=== PATIENT | male | born 1955 | race Caucasian/White ===

== ENCOUNTER 2016-08-05 14:16 | Inpatient (IN) | payer OTHER ==
[2016-08-05] VITALS (9 sets, daily range): BP systolic 116–156; BP diastolic 68–87; PULSE 83–103; RESP 15; TEMP 97.2–98.4; O2SAT 99–100
[2016-08-05] MEDS ORDERED: INSULIN HUMAN REGULAR 1,000 UNITS/10 ML VIAL IV PUSH SCH (15:45)
[2016-08-05] MEDS ORDERED: DOPamine INJ PREMIX 500 ML IV SCH (15:45)
[2016-08-05] MEDS: 1/2 NS + KCL 20 MEQ INJ 1,000 ML IV SCH (15:57)
[2016-08-05] MEDS ORDERED: DEXTROSE 50% IN WATER 50 ML VIAL(D50) IV SCH (16:00)
[2016-08-05] MEDS ORDERED: LEVOTHYROXINE SODIUM 100 MCG VIAL IV PUSH ONE (16:00)
--- NOTE | 2016-08-05 16:27 | RADRPT ---
EXAM DATE/TIME: 08/05/2016 15:49 [facility] COMPARISON: No previous studies available for comparison. INDICATIONS : Organ donor. MEDICAL HISTORY : None. SURGICAL HISTORY : None. ENCOUNTER: Initial ACUITY: 1 day PAIN SCORE: Non-responsive. LOCATION: Bilateral chest FINDINGS: Endotracheal tube tip below the malachi. Gastric tube traverses the [id number]. Left greater than catheter tip projects over the proximal superior vena cava. There are patchy infiltrates in the lef t lower lung with loss of delineation of portions of medial left hemidiaphragm. Also small areas of infiltrate in the right costophrenic angle. No evidence of mediastinal shift. CONCLUSION: Bilateral lower lobe infiltrates, left greater than right. Hasmukh Laws MD on August 05, 2016 at 16:25 Board Certified Radiologist. This report was verified electronically.
[2016-08-05] MEDS ORDERED: methylPREDNISolone SO SUCC INJ 2,000 MG in DEXTROSE 5% IN WATER INJ 250 ML IV ONE ×2 (17:00)
[2016-08-05 17:30] LABS: BLOOD GAS BASE EXCESS 1.6 mmol/L (-2-2); BLOOD GAS HCO3 26 mmol/L (22-26); BLOOD GAS METHEMOGLOBIN 0.8 % (0-2); BLOOD GAS O2 HGB SATURATION 98 % (90-100); BLOOD GAS OXYGEN CONTENT 11.7 Vol % (12.0-20.0); BLOOD GAS PCO2 42 mmHg (38-42); BLOOD GAS PO2 437 mmHg (61-120); BLOOD GAS TOTAL HGB 7.6 G/DL (12.0-16.0); CRITICAL VALUE NO; DRAW SITE ART LINE; FIO2 100 %; OXYGEN DEVICE VENTILATOR; STAT YES; TEMP CORR TO 98.6; VENT SETTINGS SEE COMMENTS
[2016-08-05] MEDS: RESP: ALBUTEROL 2.5 MG/3 ML NEB (SCH) NEB ×3 (17:34→23:53)
[2016-08-05] MEDS: LEVOTHYROXINE 400 MCG/NS 500 ML IV SCH ×2 (17:36)
[2016-08-05 18:14] LABS: AUTOMATED NEUTROPHIL # 12.5 TH/MM3 (1.8-7.7); BASOPHIL % 0.2 % (0.0-2.0); EOSINOPHIL % 0.2 % (0.0-4.0); HEMATOCRIT 24.9 % (39.0-51.0); LYMPH % 7.9 % (9.0-44.0); LYMPHOCYTE # 1.2 TH/MM3 (1.0-4.8); MEAN CELL VOLUME 86.6 FL (80.0-100.0); MEAN CORPUSCULAR HEMOGLOBIN 29.7 PG (27.0-34.0); MEAN CORPUSCULAR HGB CONC 34.2 % (32.0-36.0); MONO % 7.5 % (0.0-8.0); NEUT % 84.2 % (16.0-70.0); PLATELET COUNT 97 TH/MM3 (150-450); RED BLOOD COUNT 2.88 MIL/MM3 (4.50-5.90); RED CELL DISTRIBUTION WIDTH 13.5 % (11.6-17.2); WHITE BLOOD COUNT 14.9 TH/MM3 (4.0-11.0)
[2016-08-05] MEDS ORDERED: DEXTROSE 50% IN WATER 50 ML VIAL(D50) IV PUSH PRN (18:15)
[2016-08-05] MEDS ORDERED: MISC INFORMATION OTHER ONE (18:15)
[2016-08-05 18:20] LABS: MUCUS URINE MANY /lpf (OCC)
[2016-08-05 18:21] LABS: APTT (PATIENT) 31.4 SEC (24.3-30.1); INTERNATIONAL NORMALIZED RATIO 1.1 RATIO
[2016-08-05 18:23] LABS: BLOOD, URINE TRACE (NEG); COMMENT (UR) CATH-CULTURE IND; CULTURE IF INDICATED CATH CULTURE IND; GLUCOSE,URINE NEG (NEG); KETONE, URINE NEG (NEG); NITRITE,URINE NEG (NEG); PH, URINE 5.5 (5.0-8.5); URINE COLOR LIGHT-BROWN (YELLW/STRAW)
[2016-08-05 18:29] LABS: HEMO FLAGS AUTO DIFF
[2016-08-05 18:35] LABS: POTASSIUM 3.5 MEQ/L (3.5-5.1)
[2016-08-05 18:38] LABS: INDIRECT BILIRUBIN 0.4 MG/DL (0.0-0.8); TOTAL BILIRUBIN ADULT 0.6 MG/DL (0.2-1.0)
[2016-08-05 19:38] LABS: BANDS 10 % (0-6); NEUTROPHIL # MANUAL DIFF 13.1 TH/MM3 (1.8-7.7); POLYS (SEG NEUTROPHILS) 78 % (16-70); WBC DIFF SAMPLE 100
[2016-08-05 19:39] LABS: PLATELET ESTIMATE SMEAR LOW (NORMAL); PLATELET MORPHOLOGY NORMAL (NORMAL); SCAN/DIFF FINAL DIFF MANUAL
[2016-08-05] MEDS ORDERED: SODIUM CHLORID 0.9% 500 ML INJ 500 ML IV ONE (19:45)
[2016-08-05] MEDS ORDERED: NOREPINEPHRINE 16 MG/D5W 250 ML IV SCH ×2 (19:45)
[2016-08-05] MEDS ORDERED: TERBUTALINE INJ 1 MG/ML AMP SQ PRN (20:00)
[2016-08-05] MEDS ORDERED: PHENYLEPHRINE HCL 160 MG/D5W 484 ML ADMIX IV SCH ×2 (20:00)
[2016-08-05 20:17] LABS: BLOOD GAS BASE EXCESS 1.6 mmol/L (-2-2); BLOOD GAS CARBOXYHEMOGLOBIN 0.9 % (0-4); BLOOD GAS HCO3 26 mmol/L (22-26); BLOOD GAS METHEMOGLOBIN 0.9 % (0-2); BLOOD GAS O2 HGB SATURATION 98 % (90-100); BLOOD GAS OXYGEN CONTENT 11.9 Vol % (12.0-20.0); BLOOD GAS PCO2 46 mmHg (38-42); BLOOD GAS PO2 416 mmHg (61-120); BLOOD GAS TOTAL HGB 7.8 G/DL (12.0-16.0); CRITICAL VALUE NO; OXYGEN DEVICE VENTILATOR; TEMP CORR TO 98.6
[2016-08-05 20:18] LABS: DRAW SITE ART LINE; FIO2 100 %; STAT YES; VENT SETTINGS PRVC / AC
[2016-08-05] MEDS: INSULIN REGULAR 100 UNITS/100 ML NS ALGORITHM 4 IV SCH ×2 (20:37)
[2016-08-05] MEDS: VASOPRESSIN 80 U/NS 100 ML Titrate per Translife Protocol IV SCH ×2 (20:39)
[2016-08-05 21:12] LABS: BLOOD GAS BASE EXCESS -1.9 mmol/L (-2-2); BLOOD GAS CARBOXYHEMOGLOBIN 0.6 % (0-4); BLOOD GAS HCO3 26 mmol/L (22-26); BLOOD GAS METHEMOGLOBIN 1.1 % (0-2); BLOOD GAS O2 HGB SATURATION 98 % (90-100); BLOOD GAS OXYGEN CONTENT 11.3 Vol % (12.0-20.0); BLOOD GAS PCO2 72 mmHg (38-42); BLOOD GAS PO2 238 mmHg (61-120); BLOOD GAS TOTAL HGB 7.8 G/DL (12.0-16.0); TEMP CORR TO 98.6
[2016-08-05 21:13] LABS: CRITICAL VALUE YES; DRAW SITE ART LINE; LITER FLOW 10 L/M; OXYGEN DEVICE O2 TUBING; STAT YES
[2016-08-05] MEDS ORDERED: methylPREDNISolone SOD SUCC 1000 MG/16 ML VIAL IV SCH (22:00)
[2016-08-05 22:26] LABS: AUTOMATED NEUTROPHIL # 9.4 TH/MM3 (1.8-7.7); HEMATOCRIT 22.6 % (39.0-51.0); LYMPH % 3.5 % (9.0-44.0); LYMPHOCYTE # 0.4 TH/MM3 (1.0-4.8); MEAN CELL VOLUME 86.4 FL (80.0-100.0); MEAN CORPUSCULAR HEMOGLOBIN 30.2 PG (27.0-34.0); MEAN CORPUSCULAR HGB CONC 34.9 % (32.0-36.0); NEUT % 90.5 % (16.0-70.0); PLATELET COUNT 83 TH/MM3 (150-450); RED BLOOD COUNT 2.61 MIL/MM3 (4.50-5.90); RED CELL DISTRIBUTION WIDTH 13.4 % (11.6-17.2); WHITE BLOOD COUNT 10.4 TH/MM3 (4.0-11.0)
[2016-08-05 22:32] LABS: APTT (PATIENT) 30.7 SEC (24.3-30.1); INTERNATIONAL NORMALIZED RATIO 1.1 RATIO; PROTHROMBIN TIME - PATIENT 11.7 SEC (9.8-11.6)
[2016-08-05 22:49] LABS: BICARBONATE 31.1 MEQ/L (21.0-32.0); CALCIUM-PROTEIN CORRECTED 8.1 MG/DL (8.5-10.1); POTASSIUM 3.6 MEQ/L (3.5-5.1); TOTAL BILIRUBIN ADULT 0.5 MG/DL (0.2-1.0)
[2016-08-05 22:50] LABS: HEMO FLAGS AUTO DIFF
[2016-08-05] MEDS: cefTAZidime 1,000 MG/NS 100 ML MINIBAG IV SCH ×2 (23:20)
[2016-08-05] MEDS: CLINDAMYCIN INJ 900 MG in SODIUM CHLORIDE 0.9% INJ 100 ML IV SCH (23:21)
[2016-08-05 23:58] LABS: BANDS 24 % (0-6); METAMYELOCYTES 1 % (0-1); NEUTROPHIL # MANUAL DIFF 9.9 TH/MM3 (1.8-7.7); POLYS (SEG NEUTROPHILS) 70 % (16-70); WBC DIFF SAMPLE 100
[2016-08-06] VITALS (10 sets, daily range): BP systolic 100–103; BP diastolic 55–59; PULSE 93–112; RESP 15; TEMP 97.9–98.8; O2SAT 99–100
[2016-08-06 00:07] LABS: PLATELET ESTIMATE SMEAR LOW (NORMAL); PLATELET MORPHOLOGY NORMAL (NORMAL)
[2016-08-06 00:08] LABS: SCAN/DIFF FINAL DIFF MANUAL
[2016-08-06 00:46] LABS: BLOOD GAS BASE EXCESS 0.6 mmol/L (-2-2); BLOOD GAS CARBOXYHEMOGLOBIN 0.8 % (0-4); BLOOD GAS HCO3 25 mmol/L (22-26); BLOOD GAS O2 HGB SATURATION 98 % (90-100); BLOOD GAS OXYGEN CONTENT 11.5 Vol % (12.0-20.0); BLOOD GAS PCO2 47 mmHg (38-42); BLOOD GAS PO2 450 mmHg (61-120); BLOOD GAS TOTAL HGB 7.5 G/DL (12.0-16.0); CRITICAL VALUE NO; OXYGEN DEVICE VENTILATOR; TEMP CORR TO 98.6
[2016-08-06 00:47] LABS: DRAW SITE ART LINE; FIO2 100 %; STAT NO; VENT SETTINGS PRVC/AC
[2016-08-06] MEDS: METHYLPREDNISOLONE SO SUCC IV SCH ×4 (01:35→10:00)
[2016-08-06] MEDS: WATER IV SCH ×4 (01:35→10:00)
[2016-08-06] MEDS: VASOPRESSIN 80 U/NS 100 ML Titrate per Translife Protocol IV SCH ×4 (01:35→07:38)
[2016-08-06] MEDS: DEXTROSE 5% IV SCH ×4 (01:35→10:00)
[2016-08-06] MEDS: RESP: ALBUTEROL 2.5 MG/3 ML NEB (SCH) NEB ×2 (03:42→07:55)
[2016-08-06 04:45] LABS: BLOOD GAS BASE EXCESS -0.5 mmol/L (-2-2); BLOOD GAS CARBOXYHEMOGLOBIN 0.9 % (0-4); BLOOD GAS HCO3 24 mmol/L (22-26); BLOOD GAS O2 HGB SATURATION 98 % (90-100); BLOOD GAS OXYGEN CONTENT 15.8 Vol % (12.0-20.0); BLOOD GAS PCO2 46 mmHg (38-42); BLOOD GAS PO2 418 mmHg (61-120); BLOOD GAS TOTAL HGB 10.7 G/DL (12.0-16.0); CRITICAL VALUE NO; OXYGEN DEVICE VENTILATOR; TEMP CORR TO 98.6
[2016-08-06 04:46] LABS: DRAW SITE ART LINE; FIO2 40 %; STAT NO; VENT SETTINGS PRVC / AC
[2016-08-06] MEDS: 1/2 NS + KCL 20 MEQ INJ 1,000 ML IV SCH (05:05)
[2016-08-06 05:08] LABS: AUTOMATED NEUTROPHIL # 7.4 TH/MM3 (1.8-7.7); BASOPHIL % 0.1 % (0.0-2.0); LYMPH % 4.5 % (9.0-44.0); LYMPHOCYTE # 0.4 TH/MM3 (1.0-4.8); MEAN CELL VOLUME 86.7 FL (80.0-100.0); MEAN CORPUSCULAR HEMOGLOBIN 30.7 PG (27.0-34.0); MEAN CORPUSCULAR HGB CONC 35.3 % (32.0-36.0); MONO % 5.1 % (0.0-8.0); NEUT % 90.3 % (16.0-70.0); PLATELET COUNT 64 TH/MM3 (150-450); RED BLOOD COUNT 2.35 MIL/MM3 (4.50-5.90); RED CELL DISTRIBUTION WIDTH 13.5 % (11.6-17.2); WHITE BLOOD COUNT 8.2 TH/MM3 (4.0-11.0)
[2016-08-06 05:17] LABS: BICARBONATE 27.6 MEQ/L (21.0-32.0); CALCIUM-PROTEIN CORRECTED 8.1 MG/DL (8.5-10.1); POTASSIUM 3.8 MEQ/L (3.5-5.1); TOTAL BILIRUBIN ADULT 0.6 MG/DL (0.2-1.0)
[2016-08-06 05:23] LABS: HEMO FLAGS AUTO DIFF
[2016-08-06 05:32] LABS: HEMATOCRIT 20.4 % (39.0-51.0)
[2016-08-06] MEDS: LEVOTHYROXINE 400 MCG/NS 500 ML IV SCH ×2 (05:38)
[2016-08-06] MEDS: CLINDAMYCIN INJ 900 MG in SODIUM CHLORIDE 0.9% INJ 100 ML IV SCH (05:39)
[2016-08-06] MEDS: cefTAZidime 1,000 MG/NS 100 ML MINIBAG IV SCH ×4 (05:39→11:20)
[2016-08-06 05:58] LABS: BLOOD, URINE NEG (NEG); GLUCOSE,URINE 70 mg/dL (NEG); KETONE, URINE NEG (NEG); MUCUS URINE FEW /lpf (OCC); NITRITE,URINE NEG (NEG); PH, URINE 5.5 (5.0-8.5); URINE COLOR YELLOW (YELLW/STRAW)
[2016-08-06 06:00] LABS: COMMENT (UR) CULT NOT INDICATED; CULTURE IF INDICATED CULT NOT INDICATED
--- NOTE | 2016-08-06 06:38 | RADRPT ---
EXAM DATE/TIME: 08/06/2016 05:09 [facility] COMPARISON: CHEST SINGLE AP, August 05, 2016, 15:49. INDICATIONS : Shortness of breath, possible pulmonary disease. MEDICAL HISTORY : None. SURGICAL HISTORY : None. ENCOUNTER: Subsequent ACUITY: 2 days PAIN SCORE: Non-responsive. LOCATION: Bilateral chest FINDINGS: 2 portable frontal views of the chest show an endotracheal tube with the tip 3 cm proximal to malachi. Left subclavian central line. Nasogastric tube. Bibasilar parenchymal opacities. Some improvement on the right while the left is slightly worse. No effusions. Heart is normal in size. CONCLUSION: Some improvement in the right lower lobe infiltrate with some worsening of the left. Hasmukh Resendez Jr., MD on August 06, 2016 at 6:36 Board Certified Radiologist. This report was verified electronically.
[2016-08-06 09:11] LABS: BANDS 17 % (0-6); NEUTROPHIL # MANUAL DIFF 7.3 TH/MM3 (1.8-7.7); POLYS (SEG NEUTROPHILS) 72 % (16-70); WBC DIFF SAMPLE 100
[2016-08-06 09:12] LABS: PLATELET ESTIMATE SMEAR LOW (NORMAL); PLATELET MORPHOLOGY NORMAL (NORMAL); SCAN/DIFF FINAL DIFF MANUAL
[2016-08-06] MEDS: INSULIN REGULAR 100 UNITS/100 ML NS ALGORITHM 4 IV SCH ×2 (09:19)
[2016-08-06] MEDS ORDERED: FUROSEMIDE 40 MG/4 ML VIAL ONE (10:30)
[2016-08-06] MEDS ORDERED: FUROSEMIDE 20 MG/2 ML VIAL IV PUSH ONE (11:00)
[2016-08-06] MEDS ORDERED: LACTATED RINGER'S 1000 ML INJ 1,000 ML IV ONE (12:00)
[2016-08-06] MEDS ORDERED: VASOPRESSIN INJ 20 UNITS/ML VIAL ONE ×2 (14:28→14:29)
[2016-08-06] MEDS ORDERED: SODIUM CHLORIDE 0.9% INJ 100 ML ONE ×2 (14:31→14:35)
== END 2016-08-06 17:00 | disposition expired | DRG 951 ==
LOC: N03B 14:16
DX: Z52.89 Donor of other specified organs or tissues (principal)
CPT/HCPCS: 71010; 80048; 80053; 80076; 81001; 82330; 82550; 82805; 82947; 82948; 82977; 83735; 84100; 84484; 85007; 85027; 85384; 85610; 85730; 86920; 87015; 87040; 87070; 87071; 87086; 87116; 87205; 87206; 88160; 88305; 88307; 88331; 94002; 94003; 94640; 94667; 94668; J0713; J1815; J1817; J1940; J2370; J2930; J7040; J7060; J7120; J7613